=== PATIENT | male | born 2000 | race Caucasian/White ===

== ENCOUNTER 2023-06-04 19:04 | Emergency (ER) | payer SELFPAY ==
[~2023-06-04] VITALS: Ht 165.1 cm; Wt 45.0 kg
[2023-06-04 19:21] VITALS: TEMP 98.5; O2SAT 99
[2023-06-04] MEDS ORDERED: LIDOCAINE HCL/PF 1% 10 MG/ML 5ML VIAL INFIL ONE (19:45)
[2023-06-04] MEDS ORDERED: TETANUS, DIPHTHERIA, PERTUSSIS VAC/PF 0.5ML (>10YR OLD) IM ONE (19:45)
[2023-06-04] MEDS ORDERED: BACITRACIN ZINC OINT UDPKT TOP ONE (19:45)
[2023-06-04 20:14] VITALS: BP 130/87; PULSE 100; RESP 18
[2023-06-04] MEDS ORDERED: KETOROLAC 30MG/ML VIAL IM ONE (20:15)
== END 2023-06-04 21:36 | disposition home or self-care (01) ==
LOC: ER 19:04
DX: S61.211A Laceration without foreign body of left index finger without damage to nail, initial encounter (principal); X58.XXXA Exposure to other specified factors, initial encounter; Y93.89 Activity, other specified; Y92.89 Other specified places as the place of occurrence of the external cause; Y99.8 Other external cause status
CPT/HCPCS: 90715; 12002; 90471; 96372; 99284; J1885; J3490; Z7610 ×2